=== PATIENT | male | born 1940 | race Caucasian/White ===

== ENCOUNTER → 2016-07-02 | Outpatient (CLI) | payer MEDICARE, OTHER ==
--- NOTE | 2016-07-02 15:03 | CARD ---
APPROVED REPORT EXAM: Two-dimensional and M-mode echocardiogram with Doppler and color Doppler. Other Information Quality : GoodHR: 43bpm Rhythm : Bradycardia INDICATION Cardiac Disease: CAD RISK FACTORS Hypertension 2D DIMENSIONS RVDd4.1 (2.9-3.5cm)Left Atrium(2D)5.2 (1.6-4.0cm) IVSd1.0 (0.7-1.1cm)Aortic Root(2D)3.2 (2.0-3.7cm) LVDd5.1 (3.9-5.9cm)LVOT Diameter2.5 (1.8-2.4cm) PWd1.0 (0.7-1.1cm)LVDs4.1 (2.5-4.0cm) FS (%) 19.1 %SV48.5 ml LVEF(%)35.0 (>50%) Aortic Valve AoV Peak Darrell.161.6cm/sAoV VTI54.6cm AO Peak GR.10.4mmHgLVOT Peak Darrell.92.4cm/s AO Mean GR.5mmHgAVA (VMAX)2.89cm2 Mitral Valve MV E Peak Gr.91mmHgMV E Mean Gr.3mmHg Pulmonary Valve PV Peak Weftvjqi67.0cm/s Tricuspid Valve TR P. Vruiypiz218dn/sRAP [id number] TR Peak Gr.15ilIsEAQA05imOd LEFT VENTRICLE The left ventricle is normal size. There is normal left ventricular wall thickness. Left ventricle sy stolic function is moderately impaired. The Ejection Fraction is 35%. Abnormal septal wall motion wit h mild global hypokinesis. No mitral inflow A waves identified at time of the examination, unable to assess diastolic function. RIGHT VENTRICLE The right ventricle is moderately to severely dilated. There is normal right ventricular wall thickne ss. The right ventricular systolic function is impaired ATRIA The left atrium is severely dilated. The right atrium size is dilated The interatrial septum is intac t with no evidence for an atrial septal defect or patent foramen ovale as noted on 2-D or Doppler karrie ging. AORTIC VALVE The aortic valve is mildly sclerotic. Doppler and Color Flow revealed no significant aortic regurgita tion. There is no significant aortic valvular stenosis. MITRAL VALVE Mitral annular calcification is mild. There is no evidence of mitral valve prolapse. There is no mitr al valve stenosis. Doppler and Color Flow revealed moderate mitral regurgitation. TRICUSPID VALVE The tricuspid valve is normal in structure Doppler and Color Flow revealed moderate to severe tricusp id regurgitation. There is severe pulmonary hypertension. The PA pressure was estimated at 70 mmHg. T here is no tricuspid valve stenosis. PULMONIC VALVE The pulmonary valve is normal in structure Doppler and Color Flow revealed mild pulmonic valvular reg urgitation. There is no pulmonic valvular stenosis. GREAT VESSELS The aortic root is normal in size. The ascending aorta is normal in size. The pulmonary artery is nor mal. The IVC is dilated and collapses <50% with inspiration. PERICARDIAL EFFUSION There is no evidence of significant pericardial effusion. Critical Notification Critical Value: No <Conclusion> Left ventricle systolic function is moderately impaired. The Ejection Fraction is 35%. No mitral inflow A waves identified at time of the examination, unable to assess diastolic function. The right ventricle is moderately to severely dilated. The right ventricular systolic function is impaired The left atrium is severely dilated. The right atrium size is dilated The aortic valve is mildly sclerotic. Doppler and Color Flow revealed moderate mitral regurgitation. Doppler and Color Flow revealed moderate to severe tricuspid regurgitation. There is severe pulmonary hypertension. The PA pressure was estimated at 70 mmHg. Doppler and Color Flow revealed mild pulmonic valvular regurgitation. There is no evidence of significant pericardial effusion.
== END | disposition home or self-care (01) ==
LOC: ECHO 12:39
PROVIDERS: ATTEND Family Medicine
DX: I25.10 Atherosclerotic heart disease of native coronary artery without angina pectoris (principal); I34.0 Nonrheumatic mitral (valve) insufficiency; I27.2 Other secondary pulmonary hypertension
CPT/HCPCS: 93306

== ENCOUNTER → 2018-11-06 | Outpatient (CLI) | payer MEDICARE ==
--- NOTE | 2018-11-06 11:10 | KCIC ---
Two-view chest dated 11/06/2018. Comparison made to 06/24/2016. CLINICAL INDICATION: Cough. FINDINGS: PA and lateral views of the chest were obtained. Heart and mediastinal contours are stable. Patient is status post median sternotomy. There is a 3 lead left subclavian pacer/AICD, unchanged. There is some patchy increased density at the left lung base best seen on the lateral view, increased from prior study. Lungs are otherwise clear. No pleural effusion or pneumothorax. Mild wedging of a lower thoracic vertebral body is unchanged. IMPRESSION: 1. Mild patchy left basilar opacity, atelectasis versus early pneumonia. 2. Otherwise stable appearance of chest compared to 06/24/2016. Electronically signed by: Chu Boyer MD (11/06/2018 11:07 AM) [facility]
== END | disposition home or self-care (01) ==
LOC: KCIC 10:14
PROVIDERS: ATTEND Family Medicine
DX: R91.8 Other nonspecific abnormal finding of lung field (principal); Z98.890 Other specified postprocedural states
CPT/HCPCS: 71046